=== PATIENT | male | born 1945 | race Two or more races ===

== ENCOUNTER 2019-02-09 16:35 | Emergency (ER) | payer MEDICAID, MEDICARE, OTHER ==
[~2019-02-09] VITALS: Ht 165.1 cm; Wt 74.8 kg
[~2019-02-09 16:35] MED LIST: ASPIR 8181 MG ORAL; DOCUSATE SODIU100 MG ORAL; HYDROCHLOROTHIA25 MG ORAL; LOSARTAN POTASS50 MG ORAL; NITROGLYCERIN0.4 MG SL; REGLAN10 MG ORAL
[2019-02-09] MEDS ORDERED: TAMSULOSIN HCL0.4 MG ORAL (17:02)
[2019-02-09 17:26] VITALS: BP 143/83
[2019-02-09] MEDS ORDERED: GUAIFENESIN-CO118 M1 ORAL (17:54)
[2019-02-09] MEDS ORDERED: TAMIFLU75 MG ORAL (17:54)
--- NOTE | 2019-02-09 17:54 | Emergency Room Report ---
History of Present Illness General Chief Complaint: Upper Respiratory Illness Source: Patient Present Illness HPI This is a 73-year-old male who complains of upper respiratory symptoms, including cough, congestion, sore throat, subjective fever. No exacerbating or relieving factor. Started 2 days ago. Denies any weakness. Denies any chest pain. Denies any shortness of breath. Has not taken any medication for this. Allergies: Coded Allergies: No Known Allergies (Unverified , 05/25/15) Patient History Past Medical History: HTN Past Surgical History: none Pertinent Family History: none Nursing Documentation-PMH Hx Cardiac Problems: No Hx Hypertension: Yes Hx Cancer: No Hx Gastrointestinal Problems: No Hx Neurological Problems: No Review of Systems All Other Systems: negative except mentioned in HPI Physical Exam Vital Signs Date Time Temp Pulse Resp B/P (MAP) Pulse Ox O2 Delivery O2 Flow Rate FiO2 02/09/19 16:56 98.6 97 18 143/83 92 Room Air General Appearance: well appearing, no apparent distress Head: normocephalic, atraumatic ENT: hearing grossly normal, normal voice Neck: full range of motion, supple Respiratory: lungs clear, no respiratory distress, speaking full sentences Cardiovascular #1: regular rate, rhythm, no edema Gastrointestinal: non tender, soft Musculoskeletal: normal inspection, no calf tenderness Neurologic: alert, normal gait Psychiatric: mood/affect normal Skin: no rash Medical Decision Making Diagnostic Impression: Primary Impression: Upper respiratory infection ER Course patient will be started on Tamiflu. No other assoc symptoms. no hypoxia, tachypnea, and tachycardia. Last Vital Signs Date Time Temp Pulse Resp B/P (MAP) Pulse Ox O2 Delivery O2 Flow Rate FiO2 02/09/19 17:26 98.6 97 18 143/83 92 Room Air Disposition: HOME, SELF-CARE Condition: Stable Scripts Guaifenesin/Codeine Phos* (ROBITUSSIN AC*) 118 Ml Liquid 5 ML ORAL Q4H PRN for For Cough, #118 ML 0 Refills Prov: ERENDIRA ZABALA 02/09/19 Oseltamivir Phosphate (Tamiflu) 75 Mg Capsule 75 MG ORAL TWICE A DAY for 5 Days, #10 CAP Prov: ERENDIRA ZABALA 02/09/19 Patient Instructions: Upper Respiratory Infection, Adult ERENDIRA ZABALA Feb 09, 2019 17:54
--- NOTE | 2019-02-09 18:10 | NUR ---
ER DISCHARGE NOTE: Patient is cleared to be discharged per ERMD, pt is aox4, on room air, with stable vital signs. pt was given dc and prescription instructions, pt was able to verbalize understanding, pt is able to ambulate with steady gait. pt took all belongings.
[2019-02-09 19:13] VITALS: BP 143/83
== END 2019-02-09 18:10 | disposition home or self-care (01) ==
LOC: EMR 17:15
DX: J06.9 Acute upper respiratory infection, unspecified (principal); I10 Essential (primary) hypertension
CPT/HCPCS: 99282